=== PATIENT | female | born 1960 | race Caucasian/White ===

== ENCOUNTER 2016-04-12 16:10 | Emergency (ER) | payer MEDICAID ==
[~2016-04-12] VITALS: Ht 165.1 cm; Wt 61.2 kg
[~2016-04-12 16:10] MED LIST: ASPI-231 PO; ATOR40TA52 PO; GABA300C8 PO; METO25TA5 PO; ONDA4TAB5 PO; TICA90TA PO
[2016-04-12 16:17] VITALS: BP 157/85
[2016-04-12] MEDS ORDERED: KETOROLAC TROMETH 60MG/2ML VIAL IM ONE (17:15)
== END 2016-04-12 18:33 | disposition home or self-care (01) ==
LOC: EDBD 16:10 → ER 16:10
DX: S83.92XA Sprain of unspecified site of left knee, initial encounter (principal); S76.012A Strain of muscle, fascia and tendon of left hip, initial encounter; M16.0 Bilateral primary osteoarthritis of hip; I25.2 Old myocardial infarction; Z87.442 Personal history of urinary calculi; I10 Essential (primary) hypertension; E11.9 Type 2 diabetes mellitus without complications; E78.5 Hyperlipidemia, unspecified; W10.8XXA Fall (on) (from) other stairs and steps, initial encounter; Y93.89 Activity, other specified; Y99.8 Other external cause status; Y92.218 Other school as the place of occurrence of the external cause; Z88.6 Allergy status to analgesic agent; Z79.899 Other long term (current) drug therapy
CPT/HCPCS: 29505; 73502; 73562; 73700; 96372; 99284; J1885

== ENCOUNTER → 2016-06-17 | Outpatient (CLI) | payer MEDICAID ==
[~2016-06-17] MED LIST changes: +INSLANTI SC; +ISOS60TA24 PO
[2016-06-17 08:20] LABS: DEFINITIVE VIEW TRANSMISSION; Hemoglobin 11.4 g/dL (12.2-16.2); Mean Corpuscular Hemoglobin 29.6 pg (28.0-32.0); Mean Corpuscular Hgb Conc. 33.5 g/dL (32.0-36.0); Mean Corpuscular Volume 88.4 fL (80.0-100.0); Mean Platelet Volume 10.1 fL (7.4-10.4); Platelet Count (auto) 207 10^3/uL (140-450); Red Cell Distribution Width 13.1 % (11.6-16.0); White Blood Cell 6.3 10^3/uL (4.4-10.8)
[2016-06-17 08:24] LABS: Metamyelocytes % 0; Myelocytes % 0; Promyelocytes % 0; Reactive Lymphocytes 0
[2016-06-17 08:30] LABS: Albumin 3.5 g/dL (3.4-5.0); BUN/Creatinine Ratio 24.6; Bilirubin, Total 0.4 mg/dL (0.2-1.0); Calcium 9.1 mg/dL (8.5-10.1); Potassium 5.2 mmol/L (3.5-5.1)
[2016-06-17 08:41] LABS: Urine Bilirubin Negative (Negative); Urine Blood Negative /uL (Negative); Urine Color Yellow (Yellow); Urine Glucose Normal (Normal); Urine Ketone Negative (Negative); Urine Nitrite Negative (Negative); Urine RBC <1 /hpf (0 - 4); Urine Squamous Epithelial Cell FEW /hpf (<5); Urine Urobilinogen Normal (Negative); Urine pH 5.5 (5.0-8.0)
[2016-06-17 08:58] LABS: Platelet Estimate Adequate; RBC Morphology Normal
== END | disposition home or self-care (01) ==
LOC: LAB 07:49
PROVIDERS: ATTEND Internal Medicine
DX: I10 Essential (primary) hypertension (principal); E11.22 Type 2 diabetes mellitus with diabetic chronic kidney disease; Z98.82 Breast implant status; Z86.72 Personal history of thrombophlebitis
CPT/HCPCS: 36415; 80053; 80061; 81001; 82043; 83036; 84443; 85007; 85027

== ENCOUNTER 2020-08-03 18:06 | Emergency (ER) | payer MEDICAID ==
[~2020-08-03] VITALS: Ht 165.1 cm; Wt 56.7 kg
[~2020-08-03 18:06] MED LIST changes: +GABA300C10 PO; -GABA300C8 PO; +ONDA-144 PO; -ONDA4TAB5 PO
[2020-08-03 19:21] VITALS: BP 123/51
== END 2020-08-03 20:21 | disposition home or self-care (01) ==
LOC: ER 18:06
DX: I10 Essential (primary) hypertension (principal); E11.9 Type 2 diabetes mellitus without complications; E78.5 Hyperlipidemia, unspecified; I25.2 Old myocardial infarction; Z98.51 Tubal ligation status; Z76.0 Encounter for issue of repeat prescription; Z88.6 Allergy status to analgesic agent

== ENCOUNTER 2020-12-15 09:39 | Emergency (ER) | payer MEDICAID, OTHER ==
[~2020-12-15] VITALS: Ht 165.1 cm; Wt 58.1 kg
[~2020-12-15 09:39] MED LIST changes: -ASPI-231 PO; +ASPI1TAB20 PO
[2020-12-15 12:10] VITALS: BP 137/68
== END 2020-12-15 12:16 | disposition home or self-care (01) ==
LOC: EDBD 09:39 → EDUNIT# 09:39 → ER 09:39
DX: S86.911A Strain of unspecified muscle(s) and tendon(s) at lower leg level, right leg, initial encounter (principal); I12.9 Hypertensive chronic kidney disease with stage 1 through stage 4 chronic kidney disease, or unspecified chronic kidney disease; E11.22 Type 2 diabetes mellitus with diabetic chronic kidney disease; N18.9 Chronic kidney disease, unspecified; I25.2 Old myocardial infarction; E78.5 Hyperlipidemia, unspecified; Z87.891 Personal history of nicotine dependence; Z79.82 Long term (current) use of aspirin; Z79.4 Long term (current) use of insulin; Z79.899 Other long term (current) drug therapy; Z88.8 Allergy status to other drugs, medicaments and biological substances; W01.0XXA Fall on same level from slipping, tripping and stumbling without subsequent striking against object, initial encounter; Y93.89 Activity, other specified; Y92.89 Other specified places as the place of occurrence of the external cause; Y99.8 Other external cause status
CPT/HCPCS: 73560

== ENCOUNTER 2021-06-02 21:08 | Inpatient (IN) | payer MEDICAID, OTHER ==
[~2021-06-02] VITALS: Ht 167.6 cm; Wt 60.5 kg
[2021-06-02] MEDS ORDERED: SODIUM CHLORIDE 0.9% 2,000 ML IV ONE (21:15)
[2021-06-02] MEDS ORDERED: LACTATED RINGER'S 2,000 ML IV ONE (21:15)
[2021-06-02] MEDS ORDERED: VANCOMYCIN 1GM/250ML 250 ML IV ONE (21:15)
[2021-06-02] MEDS ORDERED: CEFEPIME 1 GM in SODIUM CHL 0.9% 50 ML IV ONE (21:15)
[2021-06-02] MEDS ORDERED: ONDANSETRON HCL 4 MG/2 ML VIAL ONE (21:22)
[2021-06-02] MEDS ORDERED: ONDANSETRON HCL 4 MG/2 ML VIAL IV ONE (21:30)
[2021-06-02] MEDS ORDERED: PIPERACILLIN-TAZOB 3.375GM 100 ML IV ONE (21:30)
[2021-06-02 21:43] LABS: Basophils # (auto) 0.1 10 ^3/uL (0-0.2); Basophils % (auto) 0.8 % (0.0-2.0); Eosinophils # (auto) 0.2 10 ^3/uL (0-0.8); Eosinophils % (auto) 2.4 % (0.0-7.0); Hematocrit 39.1 % (36.0-46.0); Hemoglobin 12.8 g/dL (12.2-16.2); Lymphocytes # (auto) 1.1 10 ^3/uL (0.4-5.4); Lymphocytes % (auto) 11.7 % (10.0-50.0); Mean Corpuscular Hemoglobin 29.8 pg (28.0-32.0); Mean Corpuscular Hgb Conc. 32.7 g/dL (32.0-36.0); Mean Corpuscular Volume 91.2 fL (80.0-100.0); Monocytes # (auto) 0.6 10 ^3/uL (0-1.3); Monocytes % (auto) 6.4 % (0.0-12.0); Neutrophils # (auto) 7.5 10 ^3/uL (1.6-8.6); Neutrophils % (auto) 78.7 % (37.0-80.0); Nucleated Red Blood Cells % 0.1 %; Red Blood Cells 4.28 10^6/uL (4.0-5.20); Red Cell Distribution Width 13.3 % (11.8-14.3); White Blood Cell 9.6 10^3/uL (4.4-10.8)
[2021-06-02] MEDS ORDERED: METOCLOPRAMIDE HCL 5MG/ml INJ 2ml VIAL IV ONE (22:00)
[2021-06-02 22:03] LABS: Albumin 3.3 g/dL (3.4-5.0); Calcium 8.8 mg/dL (8.5-10.1); Magnesium 1.6 mg/dL (1.6-2.6)
[2021-06-02 22:06] LABS: Bilirubin, Total 0.6 mg/dL (0.2-1.0); Phosphorus 2.8 mg/dL (2.5-4.90); Total Protein 6.5 g/dL (6.4-8.2)
[2021-06-02 22:08] LABS: Lactic Acid w/Reflex 3.7 mmol/L (0.4-2.0)
[2021-06-02 22:10] LABS: Potassium 7.5 mmol/L (3.5-5.1)
[2021-06-02 22:12] LABS: INR 1.25 (0.9-1.15)
[2021-06-02] MEDS ORDERED: InsuLIN R (HUMAN) 100 UNITS in SODIUM CHL 0.9% 99 ML IV SCH (22:15)
[2021-06-02] MEDS ORDERED: CALCIUM GLUC 1,000mg/50ml-NS 50 ML IV ONE (22:15)
[2021-06-02] MEDS ORDERED: DEXTROSE (50%) 50ML SYRG IV PRN (22:15)
[2021-06-02] MEDS ORDERED: InsuLIN REG 1unit/0.01ml Soln (100units/ml) ONE (22:45)
[2021-06-02 22:46] LABS: Urine Bacteria NONE SEEN /hpf (None Seen); Urine Blood TRACE /uL (Negative); Urine Hyaline Cast MANY /lpf (0 - 2); Urine Mucus FEW (None Seen); Urine Specific Gravity 1.014 (1.001-1.035); Urine WBC 3 /hpf (0 - 5)
[2021-06-02] MEDS: ACCU-CHEK COMFORT CURVE STRIP VI SCH (22:53)
[2021-06-02] MEDS ORDERED: ASPirin 81 mg TAB PO ONE (23:45)
[2021-06-03] VITALS (32 sets, daily range): BP systolic 68–124; BP diastolic 41–60
[2021-06-03] MEDS ORDERED: LACTATED RINGER'S 1,000 ML IV ONE
[2021-06-03] MEDS: ACCU-CHEK COMFORT CURVE STRIP VI SCH ×8 (00:06→17:20)
[2021-06-03] MEDS ORDERED: NITROGLYCERIN 0.4 MG SL TAB SL PRN (00:45)
[2021-06-03] MEDS ORDERED: ONDANSETRON HCL 4 MG/2 ML VIAL IV PRN (00:45)
[2021-06-03] MEDS ORDERED: ALBUTEROL SULF 2.5 MG/0.5ML(0.5%) NEB SOLN NEB PRN (00:45)
[2021-06-03] MEDS ORDERED: MORPHINE SULFATE INJECTION 2 MG/ML SYRG IV PRN ×2 (00:45)
[2021-06-03] MEDS ORDERED: IPRATROPIUM BROM 0.5 MG/2.5ML INH SOL NEB PRN (00:45)
[2021-06-03] MEDS ORDERED: SODIUM BICARBONATE 8.4 % INJ 50ML VIAL IV ONE (00:45)
[2021-06-03] MEDS: SODIUM ZIRCONIUM CYCL 10 GM PAK PO SCH ×4 (01:28→22:54)
[2021-06-03 02:02] LABS: Phosphorus 2.2 mg/dL (2.5-4.90); Uric Acid 6.2 mg/dL (2.6-6.0)
[2021-06-03] MEDS ORDERED: SODIUM BICARBONATE 8.4% INJ 50ML SYRINGE ONE (02:09)
[2021-06-03] MEDS: SODIUM BICARBONATE 50ML VIAL 50 ML in SOD CHL 0.45% 1,000 ML IV SCH ×3 (02:21→23:27)
[2021-06-03] MEDS: ACETAMINOPHEN 500 MG TAB PO PRN ×4 (02:29→22:55)
[2021-06-03] MEDS ORDERED: NOREPINEPHRINE 8 MG/250ML KIT 250 ML IV ONE (02:56)
[2021-06-03] MEDS ORDERED: NOREPINEPHRINE 8 MG/250ML KIT 250 ML IV SCH (03:30)
[2021-06-03] MEDS: PIPERACILLIN-TAZOB 2.25GM 50 ML IV SCH ×3 (05:30→22:54)
[2021-06-03 06:14] LABS: BUN/Creatinine Ratio 12.8; Calcium 8.1 mg/dL (8.5-10.1)
[2021-06-03 08:02] LABS: Creatinine, Urine 153 mg/dL (30.0-125.0); Sodium Urine 36 mmol/L (40-220)
[2021-06-03] MEDS ORDERED: PANTOPRAZOLE 40 MG/10 ML VIAL INJ IV SCH (10:00)
[2021-06-03] MEDS ORDERED: ASPirin 81 mg TAB PO SCH (10:00)
[2021-06-03] MEDS ORDERED: DEXTROSE (50%) 50ML SYRG IV PRN (10:00)
[2021-06-03] MEDS: TICAGRELOR 90 MG TAB PO SCH ×2 (10:05→22:54)
[2021-06-03 10:49] LABS: BUN/Creatinine Ratio 12.7; Calcium 7.8 mg/dL (8.5-10.1); Potassium 4.3 mmol/L (3.5-5.1)
[2021-06-03 12:04] LABS: Protein, Urine 89.5 mg/dL (0.0-11.9)
[2021-06-03] MEDS: InsuLIN REG 1unit/0.01ml Soln (100units/ml) SC SCH ×2 (12:23→17:20)
[2021-06-04] MEDS: InsuLIN REG 1unit/0.01ml Soln (100units/ml) SC SCH ×2 (00:35→05:31)
[2021-06-04] MEDS: SODIUM ZIRCONIUM CYCL 10 GM PAK PO SCH (05:30)
[2021-06-04] MEDS: PIPERACILLIN-TAZOB 2.25GM 50 ML IV SCH (05:30)
[2021-06-04] MEDS: ACCU-CHEK COMFORT CURVE STRIP VI SCH ×2 (05:31)
[2021-06-04] MEDS ORDERED: INSULIN LANTUS (GLARGINE) 1 /0.01ml (100units/ml) SC SCH (10:00)
== END 2021-06-04 09:33 | disposition left against medical advice (07) | DRG 190 ==
LOC: ER 21:08 → EDBD 21:08 → ICU WEST 06-03 00:43 → TELE-CENTR 06-03 17:51
PROVIDERS: ADMIT Nurse Practitioner Acute Care; ATTEND Nurse Practitioner Acute Care
DX: I21.4 Non-ST elevation (NSTEMI) myocardial infarction (principal); R57.1 Hypovolemic shock; N17.0 Acute kidney failure with tubular necrosis; E11.10 Type 2 diabetes mellitus with ketoacidosis without coma; N18.6 End stage renal disease; I50.20 Unspecified systolic (congestive) heart failure; E86.0 Dehydration; K52.9 Noninfective gastroenteritis and colitis, unspecified; E87.5 Hyperkalemia; I25.10 Atherosclerotic heart disease of native coronary artery without angina pectoris; I25.5 Ischemic cardiomyopathy; I13.2 Hypertensive heart and chronic kidney disease with heart failure and with stage 5 chronic kidney disease, or end stage renal disease; Z53.21 Procedure and treatment not carried out due to patient leaving prior to being seen by health care provider; E11.22 Type 2 diabetes mellitus with diabetic chronic kidney disease; E78.5 Hyperlipidemia, unspecified; I25.2 Old myocardial infarction; Z79.02 Long term (current) use of antithrombotics/antiplatelets; Z79.4 Long term (current) use of insulin; Z79.899 Other long term (current) drug therapy; Z83.3 Family history of diabetes mellitus; Z87.442 Personal history of urinary calculi; Z87.891 Personal history of nicotine dependence; Z95.5 Presence of coronary angioplasty implant and graft
CPT/HCPCS: 36415; 36600; 71045; 76775; 80048; 80053; 81001; 82010; 82306; 82570; 82805; 82962; 83036; 83605; 83690; 83735; 83880; 83970; 84100; 84156; 84300; 84484; 84550; 85025; 85610; 85730; 86850; 86900; 86901; 87040; 87081; 87086; 87493; 93005; 93306; 96361; 96365; 96367; 96368; 96375; 99291; C9113; G0378; J1815; J2405; J2543

== ENCOUNTER 2021-09-15 16:44 | Emergency (ER) | payer MEDICAID, OTHER ==
[~2021-09-15] VITALS: Ht 165.1 cm; Wt 51.2 kg
[2021-09-15 17:56] LABS: Hematocrit 35.9 % (36.0-46.0); Hemoglobin 11.2 g/dL (12.2-16.2); Mean Corpuscular Hemoglobin 28.7 pg (28.0-32.0); Mean Corpuscular Hgb Conc. 31.3 g/dL (32.0-36.0); Mean Corpuscular Volume 91.6 fL (80.0-100.0); Red Blood Cells 3.92 10^6/uL (4.0-5.20); White Blood Cell 9.7 10^3/uL (4.4-10.8)
[2021-09-15 18:04] LABS: Band Neutrophils % (manual) 0; Basophils % (manual) 0 (0.0-2.0); Blast Cells 0; Metamyelocytes % 0; Myelocytes % 0; Promyelocytes % 0; Reactive Lymphocytes 0
[2021-09-15 18:17] LABS: Albumin 3.5 g/dL (3.4-5.0); Calcium 8.7 mg/dL (8.5-10.1); Magnesium 1.6 mg/dL (1.6-2.6); Potassium 5.5 mmol/L (3.5-5.1)
[2021-09-15 18:20] LABS: Bilirubin, Total 0.3 mg/dL (0.2-1.0); Total Protein 6.8 g/dL (6.4-8.2)
[2021-09-15 18:43] LABS: Eosinophils % (manual) 26 (0-7); Lymphocytes % (manual) 17 (10.0-50.0); Monocytes % (manual) 4 (0-12)
[2021-09-15 19:30] VITALS: BP 124/63
[2021-09-15] MEDS ORDERED: GABA-339 PO (21:24)
[2021-09-15] MEDS ORDERED: ATOR80TA PO (21:24)
== END 2021-09-15 21:21 | disposition home or self-care (01) ==
LOC: ER 16:44
DX: I95.9 Hypotension, unspecified (principal); I12.9 Hypertensive chronic kidney disease with stage 1 through stage 4 chronic kidney disease, or unspecified chronic kidney disease; E11.22 Type 2 diabetes mellitus with diabetic chronic kidney disease; N18.9 Chronic kidney disease, unspecified; E78.5 Hyperlipidemia, unspecified; I25.2 Old myocardial infarction; Z76.0 Encounter for issue of repeat prescription; Z87.891 Personal history of nicotine dependence; Z79.4 Long term (current) use of insulin; Z79.82 Long term (current) use of aspirin; Z79.899 Other long term (current) drug therapy; Z88.8 Allergy status to other drugs, medicaments and biological substances
CPT/HCPCS: 36415; 71045; 80053; 83735; 84484; 85007; 85027

== ENCOUNTER 2021-10-12 19:59 | Emergency (ER) | payer MEDICAID ==
[~2021-10-12] VITALS: Ht 165.1 cm; Wt 47.0 kg
[2021-10-12 19:59] VITALS: BP 179/83
[~2021-10-12 19:59] MED LIST changes: +ATOR80TA PO; +GABA-339 PO
== END 2021-10-12 22:30 | disposition left against medical advice (07) ==
LOC: ER 19:59
DX: R05.9 Cough, unspecified (principal); R09.81 Nasal congestion; R07.89 Other chest pain; I25.2 Old myocardial infarction; Z53.21 Procedure and treatment not carried out due to patient leaving prior to being seen by health care provider

== ENCOUNTER 2021-11-03 12:16 | Inpatient (IN) | payer MEDICAID, OTHER ==
[~2021-11-03] VITALS: Ht 170.2 cm; Wt 47.5 kg
[2021-11-03 13:02] LABS: Hematocrit 37.9 % (36.0-46.0); Mean Corpuscular Hemoglobin 28.4 pg (28.0-32.0); Mean Corpuscular Hgb Conc. 31.7 g/dL (32.0-36.0); Mean Corpuscular Volume 89.7 fL (80.0-100.0); Red Blood Cells 4.23 10^6/uL (4.0-5.20); Red Cell Distribution Width 13.2 % (11.8-14.3); White Blood Cell 9.7 10^3/uL (4.4-10.8)
[2021-11-03 13:16] LABS: Band Neutrophils % (manual) 0; Basophils % (manual) 0 (0.0-2.0); Blast Cells 0; Metamyelocytes % 0; Myelocytes % 0; Promyelocytes % 0; Reactive Lymphocytes 0
[2021-11-03 13:19] LABS: Albumin 3.6 g/dL (3.4-5.0); BUN/Creatinine Ratio 23.4; Calcium 8.8 mg/dL (8.5-10.1); Magnesium 1.7 mg/dL (1.6-2.6)
[2021-11-03 13:21] LABS: Bilirubin, Total 0.4 mg/dL (0.2-1.0); Total Protein 6.7 g/dL (6.4-8.2)
[2021-11-03 13:26] LABS: Potassium 7.1 mmol/L (3.5-5.1)
[2021-11-03] MEDS ORDERED: CALCIUM CHL 100MG/ML 1,000 MG in D5W 5% 100 ML IV ONE (14:00)
[2021-11-03] MEDS ORDERED: ALBUTEROL SULF 2.5 MG/0.5ML(0.5%) NEB SOLN NEB ONE (14:00)
[2021-11-03] MEDS ORDERED: InsuLIN REG 1unit/0.01ml Soln (100units/ml) IV ONE (14:00)
[2021-11-03] MEDS ORDERED: FUROSEMIDE 40 MG/4 ML VIAL IV ONE (14:00)
[2021-11-03] MEDS ORDERED: SODIUM BICARBONATE 8.4 % INJ 50ML VIAL IV ONE (14:00)
[2021-11-03 14:01] LABS: Lymphocytes % (manual) 15 (10.0-50.0); Monocytes % (manual) 6 (0-12)
[2021-11-03 14:02] LABS: Eosinophils % (manual) 34 (0-7)
[2021-11-03] MEDS ORDERED: SODIUM CHLORIDE 0.9% 1,000 ML IVB ONE (17:00)
[2021-11-03 17:55] LABS: BUN/Creatinine Ratio 26.4; Calcium 9.1 mg/dL (8.5-10.1); Potassium 5.3 mmol/L (3.5-5.1)
[2021-11-03] MEDS ORDERED: MORPHINE SULFATE INJ 2 MG/ml SYRG IV PRN (18:30)
[2021-11-03] MEDS ORDERED: NITROGLYCERIN 0.4 MG SL TAB SL PRN (18:30)
[2021-11-03] MEDS ORDERED: AZITHROMYCIN 500MG/ 250ML 250 ML IV ONE (19:00)
[2021-11-03] MEDS ORDERED: SODIUM BICARBONATE 50ML VIAL 50 ML in SOD CHL 0.45% 1,000 ML IV ONE (19:00)
[2021-11-03] MEDS ORDERED: IPRATROPIUM BROM 0.5 MG/2.5ML INH SOL NEB PRN (19:00)
[2021-11-03] MEDS ORDERED: cefTRIAXone 1GM/50ML D5W 50 ML IV ONE (19:00)
[2021-11-03] MEDS ORDERED: DEXTROSE (50%) 50ML SYRG IV PRN (19:00)
[2021-11-03] MEDS ORDERED: ALBUTEROL SULF 2.5 MG/0.5ML(0.5%) NEB SOLN NEB PRN (19:00)
[2021-11-03 19:13] VITALS: BP 89/48
[2021-11-03 19:35] VITALS: BP 163/102
[2021-11-03 20:09] LABS: Urine Bacteria FEW /hpf (None Seen); Urine Blood Negative /uL (Negative); Urine Specific Gravity 1.004 (1.001-1.035); Urine WBC <1 /hpf (0 - 5)
[2021-11-03] MEDS ORDERED: INSULIN LANTUS (GLARGINE) 1 /0.01ml (100units/ml) SC SCH (22:00)
[2021-11-03] MEDS: TICAGRELOR 90 MG TAB PO SCH (22:35)
[2021-11-03] MEDS: ACCU-CHEK COMFORT CURVE STRIP VI SCH (22:36)
[2021-11-03 22:59] VITALS: BP 117/60
[2021-11-03] MEDS: InsuLIN REG 1unit/0.01ml Soln (100units/ml) SC SCH (23:00)
[2021-11-03 23:11] VITALS: BP 117/60
[2021-11-03 23:14] VITALS: BP 117/60
[2021-11-03 23:57] LABS: Calcium 8.3 mg/dL (8.5-10.1); Potassium 4.6 mmol/L (3.5-5.1)
[2021-11-04 05:00] VITALS: BP 118/52
[2021-11-04] MEDS ORDERED: IPRATROPIUM BROM 0.5 MG/2.5ML INH SOL NEB SCH (06:00)
[2021-11-04] MEDS ORDERED: ALBUTEROL SULF 2.5 MG/0.5ML(0.5%) NEB SOLN NEB SCH (06:00)
[2021-11-04] MEDS: InsuLIN REG 1unit/0.01ml Soln (100units/ml) SC SCH (06:08)
[2021-11-04] MEDS: ACCU-CHEK COMFORT CURVE STRIP VI SCH (06:09)
[2021-11-04] MEDS ORDERED: cefTRIAXone 1GM/50ML D5W 50 ML IV SCH (09:00)
[2021-11-04 09:23] VITALS: BP 121/51
[2021-11-04] MEDS: TICAGRELOR 90 MG TAB PO SCH (10:00)
[2021-11-04] MEDS ORDERED: ATORVASTATIN 20 MG TAB PO SCH (10:00)
[2021-11-04] MEDS ORDERED: AZITHROMYCIN 500MG/ 250ML 250 ML IV SCH (10:00)
[2021-11-04] MEDS ORDERED: ASPirin-EC 81 mg tab PO SCH (10:00)
== END 2021-11-04 09:00 | disposition left against medical advice (07) | DRG 139 ==
LOC: ER 12:16 → TELE 18:42 → TELE-WESTW 22:23
PROVIDERS: ADMIT Registered Nurse; ATTEND Registered Nurse
DX: J18.9 Pneumonia, unspecified organism (principal); J96.00 Acute respiratory failure, unspecified whether with hypoxia or hypercapnia; N17.9 Acute kidney failure, unspecified; E87.5 Hyperkalemia; E86.0 Dehydration; E87.2 Acidosis; N18.4 Chronic kidney disease, stage 4 (severe); E11.65 Type 2 diabetes mellitus with hyperglycemia; Z20.822 Contact with and (suspected) exposure to COVID-19; E78.5 Hyperlipidemia, unspecified; I25.10 Atherosclerotic heart disease of native coronary artery without angina pectoris; Z53.29 Procedure and treatment not carried out because of patient's decision for other reasons; Z83.3 Family history of diabetes mellitus; Z87.891 Personal history of nicotine dependence; Z98.61 Coronary angioplasty status; Z87.442 Personal history of urinary calculi; I25.2 Old myocardial infarction
CPT/HCPCS: 36415; 36600; 71045; 76705; 80048; 80053; 81001; 82805; 82962; 83735; 83880; 84443; 84484; 85007; 85027; 85379; 87040; 93005; 94640; 96365; 96366; 96367; 96368; 96375; 96376; 99291; G0378; J0696; J1815; J7060

== ENCOUNTER 2023-03-27 10:40 | Inpatient (IN) | payer MEDICAID, OTHER ==
[~2023-03-27] VITALS: Ht 165.1 cm; Wt 42.8 kg
[~2023-03-27 10:40] MED LIST changes: +GABA-1250 PO; -GABA300C10 PO
[2023-03-27 11:25] LABS: Basophils # (auto) 0.1 10 ^3/uL (0-0.2); Basophils % (auto) 1.1 % (0.0-2.0); Eosinophils # (auto) 1.1 10 ^3/uL (0-0.8); Eosinophils % (auto) 13.6 % (0.0-7.0); Hematocrit 35.8 % (36.0-46.0); Hemoglobin 11.4 g/dL (12.2-16.2); Lymphocytes # (auto) 1.9 10 ^3/uL (0.4-5.4); Lymphocytes % (auto) 23.6 % (10.0-50.0); Mean Corpuscular Hemoglobin 30.2 pg (28.0-32.0); Mean Corpuscular Volume 94.3 fL (80.0-100.0); Monocytes # (auto) 0.5 10 ^3/uL (0-1.3); Monocytes % (auto) 6.8 % (0.0-12.0); Neutrophils # (auto) 4.4 10 ^3/uL (1.6-8.6); Neutrophils % (auto) 54.9 % (37.0-80.0); Red Blood Cells 3.79 10^6/uL (4.0-5.20); Red Cell Distribution Width 14.1 % (11.8-14.3)
[2023-03-27 11:42] LABS: Chloride 113 mmol/L (98-107); Sodium 141 mmol/L (136-145)
[2023-03-27 11:43] LABS: Anion Gap 6 (5-15); Carbon Dioxide 22 mmol/L (20-30)
[2023-03-27 11:44] LABS: Calcium 9.7 mg/dL (8.5-10.1)
[2023-03-27 11:49] LABS: BUN/Creatinine Ratio 19.6 (10.0-20.0); Blood Alcohol < 3.0 mg/dL (<10); Blood Urea Nitrogen 35 mg/dL (9-23); Glucose 140 mg/dL (74-106)
[2023-03-27 13:40] VITALS: PULSE 97; RESP 17; O2SAT 100
[2023-03-27] MEDS: ALBUTEROL SULF 2.5 MG/0.5ML(0.5%) NEB SOLN NEB ONE (14:30)
[2023-03-27] MEDS: CALCIUM GLUC 1,000mg/50ml-NS 50 ML IV ONE (14:31)
[2023-03-27] MEDS: SODIUM ZIRCONIUM CYCL 10 GM PAK PO ONE (14:31)
[2023-03-27] MEDS: DEXTROSE (50%) 50ML SYRG IV ONE ×2 (14:32→22:50)
[2023-03-27] MEDS: SODIUM BICARBONATE 8.4% INJ 50ML SYRINGE IV ONE (14:32)
[2023-03-27] MEDS: FUROSEMIDE 20 MG/2 ML VIAL IV ONE (14:33)
[2023-03-27] MEDS: InsuLIN REG 1unit/0.01ml Soln (100units/ml) IV ONE (14:34)
[2023-03-27] MEDS ORDERED: DOCUSATE SOD 100 MG CAP PO PRN (14:45)
[2023-03-27] MEDS ORDERED: MORPHINE SULFATE INJ 2 MG/ml SYRG IV PRN (14:45)
[2023-03-27] MEDS: SODIUM CHLORIDE 0.9% 1,000 ML IV SCH (15:35)
[2023-03-27 16:00] LABS: Urine Bacteria NONE SEEN /hpf (None Seen); Urine Blood Negative /uL (Negative); Urine Clarity Clear (Clear); Urine Color Colorless (Yellow); Urine Protein, UAD Negative (Negative); Urine Specific Gravity 1.008 (1.001-1.035); Urine Urobilinogen Normal (Negative); Urine WBC 1 /hpf (0 - 5); Urine pH 5.5 (5.0-8.0)
[2023-03-27 16:09] LABS: Amphetamine Screen, Urine Neg (NEGATIVE); Barbiturate Scree,Urine Neg (NEGATIVE); Benzodiazephine Screen, Urine Neg (NEGATIVE); Cannabinoid Screen, Urine Neg (NEGATIVE); Cocaine Screen, Urine Neg (NEGATIVE); Opiate Scree,Urine Neg (NEGATIVE); Phencyclidine Screen, Urine Neg (NEGATIVE)
[2023-03-27 16:09] LABS: Creatinine, Urine 25.8 mg/dL (30.0-125.0)
[2023-03-27 19:45] VITALS: PULSE 123; RESP 20; O2SAT 97
[2023-03-27] MEDS: InsuLIN REG 1unit/0.01ml Soln (100units/ml) SC ONE (23:13)
[2023-03-27] MEDS: ATORVASTATIN 20 MG TAB PO SCH (23:14)
[2023-03-27] MEDS: POTASSIUM CHL 20 Meq TABLET PO ONE (23:14)
[2023-03-27 23:37] VITALS: BP 144/67; PULSE 101; PULSE 94; RESP 16; TEMP 98; O2SAT 99
[2023-03-28 05:00] VITALS: BP 141/58; PULSE 98; RESP 16; TEMP 97.7; O2SAT 99
[2023-03-28 06:18] LABS: Basophils # (auto) 0.1 10 ^3/uL (0-0.2); Basophils % (auto) 0.9 % (0.0-2.0); Eosinophils # (auto) 0.8 10 ^3/uL (0-0.8); Eosinophils % (auto) 11.6 % (0.0-7.0); Hematocrit 29.7 % (36.0-46.0); Hemoglobin 9.8 g/dL (12.2-16.2); Lymphocytes # (auto) 1.8 10 ^3/uL (0.4-5.4); Lymphocytes % (auto) 25.3 % (10.0-50.0); Mean Corpuscular Hemoglobin 30.7 pg (28.0-32.0); Mean Corpuscular Volume 92.8 fL (80.0-100.0); Monocytes # (auto) 0.7 10 ^3/uL (0-1.3); Monocytes % (auto) 9.8 % (0.0-12.0); Neutrophils # (auto) 3.6 10 ^3/uL (1.6-8.6); Neutrophils % (auto) 52.4 % (37.0-80.0); Red Cell Distribution Width 14.3 % (11.8-14.3)
[2023-03-28 06:31] LABS: Alanine Aminotransferase 15 U/L (7-40); Albumin 3.9 g/dL (3.2-4.8); Alkaline Phosphatase 108 U/L (46-116); Anion Gap 6 (5-15); Aspartate Aminotransferase 20 U/L (13-40); BUN/Creatinine Ratio 21.2 (10.0-20.0); Blood Urea Nitrogen 41 mg/dL (9-23); Calcium 9.2 mg/dL (8.7-10.4); Carbon Dioxide 25 mmol/L (20-30); Chloride 109 mmol/L (98-107); Glucose 226 mg/dL (74-106); Sodium 140 mmol/L (136-145)
[2023-03-28 06:32] LABS: Bilirubin, Total 0.4 mg/dL (0.2-1.0)
[2023-03-28] MEDS: ACCU-CHEK COMFORT CURVE STRIP VI ONE (06:47)
[2023-03-28] MEDS: InsuLIN REG 1unit/0.01ml Soln (100units/ml) SC ONE (06:47)
[2023-03-28 08:00] VITALS: BP 154/74; PULSE 105; RESP 18; RESP 19; O2SAT 100
[2023-03-28] MEDS: SODIUM ZIRCONIUM CYCL 10 GM PAK PO ONE (08:37)
[2023-03-28] MEDS: ASPirin-EC 81 mg tab PO SCH (08:38)
[2023-03-28] MEDS: ISOSORBIDE MONONITRATE ER 60 MG TAB PO SCH (08:42)
[2023-03-28] MEDS: METOPROLOL TARTRATE 25 MG TAB PO SCH (08:42)
[2023-03-28 09:09] VITALS: BP 151/68; PULSE 108; RESP 17; TEMP 97.8; O2SAT 100
[2023-03-28] MEDS ORDERED: PATIENTS OWN MEDICATION (Atorvastatin Calcium 40 MG) PO SCH (10:00)
[2023-03-28] MEDS: INSULIN LANTUS (GLARGINE) 1 /0.01ml (100units/ml) SC ONE (10:15)
[2023-03-28] MEDS: INSULIN LISPRO (HUMAN) 100 UNITS/ML ML SC ONE (10:15)
[2023-03-28] MEDS ORDERED: DEXTROSE (50%) 50ML SYRG IV PRN (10:15)
[2023-03-28] MEDS: ACCU-CHEK COMFORT CURVE STRIP VI SCH (11:30)
[2023-03-28] MEDS: InsuLIN REG 1unit/0.01ml Soln (100units/ml) SC SCH ×2 (11:30→21:32)
[2023-03-28 17:00] VITALS: BP 140/58; PULSE 88; RESP 18; TEMP 97.3; O2SAT 100
[2023-03-28] MEDS: SODIUM ZIRCONIUM CYCL 10 GM PAK PO SCH (17:57)
[2023-03-28] MEDS: D5W/SOD CHL 0.45% 1,000 ML IV SCH (18:32)
[2023-03-28 20:00] VITALS: PULSE 96
[2023-03-28 21:45] LABS: Hepatitis B Surface Antibody Negative (Negative)
[2023-03-28 21:57] LABS: Hepatitis B Surface Antigen Negative (Negative)
[2023-03-28 22:00] VITALS: BP 124/60; PULSE 94; RESP 18; TEMP 97.8; O2SAT 98
[2023-03-28] MEDS ORDERED: INSULIN LANTUS (GLARGINE) 1 /0.01ml (100units/ml) SC SCH (22:00)
[2023-03-29] MEDS: InsuLIN REG 1unit/0.01ml Soln (100units/ml) SC ONE (04:31)
[2023-03-29 05:00] VITALS: BP 136/54; PULSE 92; RESP 20; TEMP 98; O2SAT 96
[2023-03-29 06:09] LABS: Chloride 107 mmol/L (98-107); Potassium 5.4 mmol/L (3.5-5.1); Sodium 136 mmol/L (136-145)
[2023-03-29 06:11] LABS: Anion Gap 4 (5-15); Calcium 8.9 mg/dL (8.7-10.4); Carbon Dioxide 25 mmol/L (20-30)
[2023-03-29 06:16] LABS: BUN/Creatinine Ratio 19.3 (10.0-20.0); Blood Urea Nitrogen 34 mg/dL (9-23)
[2023-03-29 06:23] LABS: Glucose 419 mg/dL (74-106)
[2023-03-29] MEDS: ONDANSETRON HCL 4 MG/2 ML VIAL IV PRN (06:25)
[2023-03-29 08:00] VITALS: PULSE 86; RESP 19
[2023-03-29 08:31] VITALS: BP 109/58; PULSE 100; RESP 17; TEMP 98; O2SAT 99
[2023-03-29] MEDS ORDERED: SODIUM ZIRCONIUM CYCL 10 GM PAK PO SCH ×2 (10:00→11:30)
[2023-03-29] MEDS: SODIUM ZIRCONIUM CYCL 10 GM PAK PO SCH (12:10)
[2023-03-29 13:00] VITALS: BP 129/71; PULSE 96; RESP 16; TEMP 99.1; O2SAT 100
[2023-03-29] MEDS: D5W/SOD CHL 0.45% 1,000 ML IV SCH (14:00)
[2023-03-29] MEDS ORDERED: INSULIN LANTUS (GLARGINE) 1 /0.01ml (100units/ml) SC SCH (22:00)
== END 2023-03-29 17:34 | disposition left against medical advice (07) | DRG 469 ==
LOC: ER 10:40 → EDBD 10:40 → TELE 14:51 → TELE-WESTW 23:20
PROVIDERS: ADMIT Nurse Practitioner Family; ATTEND Internal Medicine
DX: N17.9 Acute kidney failure, unspecified (principal); R45.851 Suicidal ideations; E11.22 Type 2 diabetes mellitus with diabetic chronic kidney disease; E11.65 Type 2 diabetes mellitus with hyperglycemia; D64.9 Anemia, unspecified; E78.5 Hyperlipidemia, unspecified; E87.5 Hyperkalemia; N18.4 Chronic kidney disease, stage 4 (severe); Z53.29 Procedure and treatment not carried out because of patient's decision for other reasons; I12.9 Hypertensive chronic kidney disease with stage 1 through stage 4 chronic kidney disease, or unspecified chronic kidney disease; I25.10 Atherosclerotic heart disease of native coronary artery without angina pectoris; Z87.442 Personal history of urinary calculi; Z87.891 Personal history of nicotine dependence; Z79.4 Long term (current) use of insulin; Z80.9 Family history of malignant neoplasm, unspecified; Z83.3 Family history of diabetes mellitus
CPT/HCPCS: 36415; 76775; 80048; 80053; 80307; 80320; 81001; 82570; 82962; 84132; 84300; 85025; 86703; 86706; 86803; 87340; 93005; 94640; 99291; G0378; J1815; J2405